=== PATIENT | female | born 1990 | race Caucasian/White ===

== ENCOUNTER 2019-08-11 03:16 | Emergency (ER) | payer MEDICAID ==
[~2019-08-11] VITALS: Ht 162.6 cm; Wt 61.7 kg
[2019-08-11 03:25] VITALS: Ht 162.6 cm; Wt 61.7 kg
[2019-08-11 04:32] LABS: BASOPHIL % 0.4 % (0-2); PLATELET COUNT 300 x10^3mcL (130-400); RED CELL DISTRIBUTION WIDTH 14.3 % (11.5-14.5)
[2019-08-11 05:51] VITALS: BP 106/65
== END 2019-08-11 05:51 | disposition home or self-care (01) ==
LOC: ED 03:16
PROVIDERS: Emergency Medicine
DX: O20.0 Threatened abortion (principal)
CPT/HCPCS: 36415; Q0092

== ENCOUNTER 2020-02-11 22:20 | Emergency (ER) | payer MEDICAID ==
[~2020-02-11] VITALS: Ht 165.1 cm; Wt 95.3 kg
[2020-02-11 22:56] VITALS: Ht 165.1 cm; Wt 95.3 kg
[2020-02-12 02:45] VITALS: BP 93/60
== END 2020-02-12 02:45 | disposition home or self-care (01) ==
LOC: ED 22:20
DX: O26.891 Other specified pregnancy related conditions, first trimester (principal); G43.909 Migraine, unspecified, not intractable, without status migrainosus; Z3A.01 Less than 8 weeks gestation of pregnancy
CPT/HCPCS: 82962